=== PATIENT | female | born 1945 | race Caucasian/White ===

== ENCOUNTER 2020-12-24 19:54 | Emergency (ER) | payer MEDICAID ==
[~2020-12-24] VITALS: Ht 152.4 cm; Wt 105.0 kg
[2020-12-24] MEDS ORDERED: HYDROCODONE/ACETAMINOPHEN 10/325MG TABLET PO ONE (23:00)
[2020-12-24] MEDS ORDERED: KETOROLAC 30MG/ML VIAL IV ONE (23:45)
[2020-12-25] MEDS ORDERED: HYDROCODONE/ACETAMINOPHEN 5/325MG TABLET PO ONE (09:15)
[2020-12-25 09:18] VITALS: BP 140/70
[2020-12-25] MEDS ORDERED: IBUP-2029 MT (10:08)
[2020-12-25] MEDS ORDERED: T3 PO (10:08)
== END 2020-12-25 10:31 | disposition left against medical advice (07) ==
LOC: ER 19:54
DX: S42.291A Other displaced fracture of upper end of right humerus, initial encounter for closed fracture (principal); S43.085A Other dislocation of left shoulder joint, initial encounter; X58.XXXA Exposure to other specified factors, initial encounter; Y93.89 Activity, other specified; Y92.89 Other specified places as the place of occurrence of the external cause; Y99.8 Other external cause status
CPT/HCPCS: 73030; 73060; 96374; 99285; J1885; Z7610